=== PATIENT | female | born 1985 | race Two or more races ===

== ENCOUNTER 2024-10-11 16:21 | Emergency (ER) | payer OTHER ==
[~2024-10-11] VITALS: Ht 165.1 cm; Wt 68.0 kg
[2024-10-11 18:31] LABS: HEMATOCRIT 41.6 % (36.0-45.00); HEMOGLOBIN 13.7 g/dL (12.0-15.00); MEAN CELL VOLUME 91.4 fL (80.00-100.00); MEAN CORPUSCULAR HEMOGLOBIN 30.1 pg (27.00-32.0); PLATELET COUNT 316 K/uL (150-450); RED BLOOD COUNT 4.56 M/uL (4.00-6.00); RED CELL DISTRIBUTION WIDTH 13.6 % (11.5-14.5)
[2024-10-11] MEDS ORDERED: KETOROLAC TROMETHAMINE 60 MG VIAL IM ONE (20:15)
[2024-10-11] MEDS ORDERED: ZITHROMAX TRI-500 MG PO (22:37)
[2024-10-11] MEDS ORDERED: GILTUSS COUGH-118 M1 PO (22:37)
[2024-10-11] MEDS ORDERED: ACETAMINOPHEN500 M1 PO (22:37)
== END 2024-10-11 22:44 | disposition home or self-care (01) ==
LOC: ER 16:24
PROVIDERS: Preventive Medicine Public Health & General Preventive Medicine
DX: J06.9 Acute upper respiratory infection, unspecified (principal); Z20.822 Contact with and (suspected) exposure to COVID-19